=== PATIENT | male | born 1965 | race Caucasian/White ===

== ENCOUNTER 2019-03-01 00:21 | Emergency (ER) | payer BC ==
[2019-03-01 02:46] LABS: ABSOLUTE EOSINOPHILS # (AUTO) 0.4 10^3/uL (0.0-0.6); ABSOLUTE LYMPHOCYTES (AUTO) 2.7 10^3/uL (0.5-4.7); ABSOLUTE MONOCYTES (AUTO) 0.5 10^3/uL (0.1-1.4); ABSOLUTE NEUT (AUTO) 4.4 10^3/uL (1.7-8.2); BASOPHILS % (AUTO) 0.5 % (0-2); EOSINOPHILS % (AUTO) 4.8 % (0-6); HEMOGLOBIN 14.6 g/dL (13.5-17.0); LYMPHOCYTES % (AUTO) 33.3 % (13-45); MEAN CORPUSCULAR HGB CONC 34.1 g/dL (32.0-36.0); MEAN CORPUSCULAR VOLUME 88 fl (80-97); MONOCYTES % (AUTO) 6.6 % (3-13); PLATELET COUNT 183 10^3/uL (150-450); RED BLOOD COUNT 4.88 10^6/uL (4.35-5.55); RED CELL DISTRIBUTION WIDTH 13.5 % (11.5-14.0); SEGMENTED NEUTROPHILS % (AUTO) 54.8 % (42-78); TOTAL CELLS COUNTED % (AUTO) 100 %
--- NOTE | 2019-03-01 02:57 | RADIOLOGY REPORT (SQ) ---
EXAM DESCRIPTION: XR FEMUR 2 VIEWS COMPLETED DATE/TME: 03/01/2019 01:37 CLINICAL HISTORY: 53 years, Male, pain COMPARISON: None. NUMBER OF VIEWS: 4 TECHNIQUE: 4 view proximal left femur LIMITATIONS: None. FINDINGS: Degenerative change of the knee and hip. Osteopenia. No acute fracture or dislocation IMPRESSION: No acute osseous abnormality copyright 2010 [employer]- All Rights Reserved
--- NOTE | 2019-03-01 02:57 | RADIOLOGY REPORT (SQ) ---
EXAM DESCRIPTION: XR KNEE 4 OR MORE VIEWS COMPLETED DATE/TME: 03/01/2019 01:37 CLINICAL HISTORY: 53 years, Male, pain COMPARISON: None. NUMBER OF VIEWS: 4 TECHNIQUE: 4 view left knee LIMITATIONS: None. FINDINGS: Osteopenia. Negative for fracture or dislocation. Tricompartmental degenerative changes. Soft tissues are unremarkable IMPRESSION: Osteopenia with tricompartmental degenerative change copyright 2010 [employer]- All Rights Reserved
[2019-03-01] MEDS ORDERED: OXYCODONE-ACETAMINOPHEN 5-325 MG TABLET PO ONE (03:41)
--- NOTE | 2019-03-01 04:03 | ER Document Report ---
ED Extremity Problem, Lower - General Chief Complaint: Leg Pain Stated Complaint: LEFT LEG PAIN Time Seen by Provider: 03/01/19 01:26 Primary Care Provider: GAVINO FIELD JR, MD [Primary Care Provider] - Follow up as needed Notes: Patient is a 53-year-old male presents to the emergency department with pain and bruising noted to his left leg. Patient states on night he stood up from the couch for what he felt like was a muscle cramp in his left hamstring area. States he was initially able to "walk it out." Patient states he had a dull ache in his left hamstring ever since. States this evening patient's noticed some bruising noted to the posterior aspect of the left upper leg which is what prompted the visit to the emergency room. Patient is denying any history of trauma or injury to the area. He is denying any use of anticoagulants to include aspirin [id number]. Is denying any history of blood clots in the past. Patient's denying any history of anemia, bleeding disorders for himself or in his immediate family. Past medical history: Diabetes, hypertension, GERD Medications: Lantus, NovoLog, nifedipine, HCTZ, pantoprazole Allergies: Penicillin TRAVEL OUTSIDE OF THE [place] IN LAST 30 DAYS: No - Related Data Allergies/Adverse Reactions: Penicillins Allergy (Verified 03/01/19 00:54) Past Medical History - General Information source: Patient - Social History Smoking Status: Current Every Day Smoker Frequency of alcohol use: None Drug Abuse: None Family History: Reviewed & Not Pertinent Patient has suicidal ideation: No Patient has homicidal ideation: No - Past Medical History Cardiac Medical History: Reports: Hx Hypertension Endocrine Medical History: Reports: Hx Diabetes Mellitus Type 1, Hx Diabetes Mellitus Type 2 Renal/ Medical History: Denies: Hx Peritoneal Dialysis Psychiatric Medical History: Denies: Hx Depression Past Surgical History: Reports: Hx Cholecystectomy, Hx Herniorrhaphy, Hx Orthopedic Surgery - left shoulder; left bicep - Immunizations Hx Diphtheria, Pertussis, Tetanus Vaccination: Yes Review of Systems - Review of Systems Constitutional: No symptoms reported EENT: No symptoms reported Cardiovascular: No symptoms reported Respiratory: No symptoms reported Gastrointestinal: No symptoms reported Genitourinary: No symptoms reported Male Genitourinary: No symptoms reported Musculoskeletal: See HPI Skin: See HPI Hematologic/Lymphatic: See HPI Neurological/Psychological: No symptoms reported Physical Exam - Vital signs Vitals: Temp Pulse Resp BP Pulse Ox 97.9 F 63 19 164/90 H 97 03/01/19 00:51 03/01/19 00:51 03/01/19 00:51 03/01/19 00:51 03/01/19 00:51 - Notes Notes: GENERAL: Alert, interacts well. No acute distress. HEAD: Normocephalic, atraumatic. EYES: Pupils equal, round, and reactive to light. Extraocular movements intact. ENT: Oral mucosa moist, tongue midline. NECK: Full range of motion. Supple. Trachea midline. LUNGS: Clear to auscultation bilaterally, no wheezes, rales, or rhonchi. No respiratory distress. HEART: Regular rate and rhythm. No murmur ABDOMEN: Soft, non-tender. Non-distended. Bowel sounds present in all 4 quadrants. EXTREMITIES: Moves all 4 extremities spontaneously. No edema, normal radial and dorsalis pedis pulses bilaterally. No pain upon palpation or movement of left h ip, left knee, left ankle. No calf pain or swelling noted. No pain upon palpation left popliteal region. BACK: no cervical, thoracic, lumbar midline tenderness. No saddle anesthesia, normal distal neurovascular exam. NEUROLOGICAL: Alert and oriented x3. Normal speech. cranial nerves II through XI I grossly intact PSYCH: Normal affect, normal mood. SKIN: Warm, dry, normal turgor. Ecchymosis noted left hamstring. Course - Re-evaluation Re-evalutation: 03/01/19 04:01 Laboratory 03/01/19 02:27 WBC 8.0 RBC 4.88 Hgb 14.6 Hct 43.0 MCV 88 MCH 30.0 MCHC 34.1 RDW 13.5 Plt Count 183 Seg Neutrophils % 54.8 Lymphocytes % 33.3 Monocytes % 6.6 Eosinophils % 4.8 Basophils % 0.5 Absolute Neutrophils 4.4 Absolute Lymphocytes 2.7 Absolute Monocytes 0.5 Absolute Eosinophils 0.4 Absolute Basophils 0.0 Femur X-Ray 03/01/19 01:37 IMPRESSION: No acute osseous abnormality copyright 2010 [employer]- All Rights Reserved Knee X-Ray 03/01/19 01:37 IMPRESSION: Osteopenia with tricompartmental degenerative change copyright 2010 [employer]- All Rights Reserved X-rays reveal osteopenia with tricompartmental degenerative changes. Patient states he does have a history of osteoarthritis. Patient's labs revealed no change in his hemoglobin and hematocrit, platelet count within normal limit. Patient's denying any muscle spasm at this time. Patient states he just has a generalized "soreness" where his bruising is. Patient continues to deny any injury that he can recall. Bedside ultrasound performed by Dr. Hardin to rule out blood clots. See her note. Discussed close follow-up with primary care provider with return precautions. At this time will discharge with return precautions and follow-up recommendations. Verbal discharge instructions given a the bedside and opportunity for questions given. Medication warnings reviewed. Patient is in agreement with this plan and has verbalized understanding of return precautions and the need for primary care follow-up in the next 24-72 hours. This medical record was dictated with voice recognizing software. There may be grammatical, syntax errors that are unintended. - Vital Signs Vital signs: Temp Pulse Resp BP Pulse Ox 97.9 F 63 19 164/90 H 97 03/01/19 00:51 03/01/19 00:51 03/01/19 00:51 03/01/19 00:51 03/01/19 00:51 - Laboratory Result Diagrams: 03/01/19 02:27 Discharge - Discharge Clinical Impression: Ecchymosis, Muscle cramp Condition: Stable Disposition: HOME, SELF-CARE Instructions: Hematoma ([facility]) Additional Instructions: As we discussed you have been seen and treated in the emergency department for potential injury to your left upper leg. Your labs revealed no signs of abnorma lity to explain the bruising. Your x-rays revealed no signs of broken bones but do show signs of osteoarthritis. Your ultrasound at bedside showed no signs of obvious blood clots. Please make sure you follow-up with your primary care provider in the next 24 to 48 hours for continued care. Please return to the emergency room for any further concerns. Prescriptions: Oxycodone HCl/Acetaminophen [Percocet 5-325 mg Tablet] 1 - 2 tab PO Q4H PRN #10 tablet PRN Reason: Forms: Return to Work Referrals: GAVINO FIELD JR, MD [Primary Care Provider] - Follow up as needed
[2019-03-01 04:22] VITALS: BP 149/88
== END 2019-03-01 04:34 | disposition home or self-care (01) ==
LOC: ER 00:21
DX: R58 Hemorrhage, not elsewhere classified (principal); R25.2 Cramp and spasm; M79.18 Myalgia, other site; M85.862 Other specified disorders of bone density and structure, left lower leg; I10 Essential (primary) hypertension; K21.9 Gastro-esophageal reflux disease without esophagitis; E11.9 Type 2 diabetes mellitus without complications; Z79.4 Long term (current) use of insulin; F17.200 Nicotine dependence, unspecified, uncomplicated; Z79.899 Other long term (current) drug therapy; Z88.0 Allergy status to penicillin
CPT/HCPCS: 36415; 85025; 99283